=== PATIENT | male | born 1965 ===

== ENCOUNTER 2024-06-09 10:20 | Day surgery (SDC) | payer BC ==
[2024-06-09] MEDS ORDERED: Sodium Chloride 0.9% 10 ML Syringe FLUSH PRN (10:30)
[2024-06-09] MEDS: Lactated Ringers 1,000 ML IV SCH (10:40)
[2024-06-09] MEDS ORDERED: Midazolam 1 MG/ML 2 ML SDV ONE (11:09)
[2024-06-09] MEDS ORDERED: Propofol 200 MG/20 ML SDV ONE (11:09)
== END 2024-06-09 13:20 | disposition home or self-care (01) ==
LOC: KA.SDS 10:20
PROVIDERS: ATTEND Family Medicine
DX: Z12.11 Encounter for screening for malignant neoplasm of colon (principal); K62.1 Rectal polyp; K64.8 Other hemorrhoids; L30.9 Dermatitis, unspecified; I10 Essential (primary) hypertension; F17.210 Nicotine dependence, cigarettes, uncomplicated; Z79.899 Other long term (current) drug therapy; Z80.0 Family history of malignant neoplasm of digestive organs
CPT/HCPCS: 00811; J2250; J2704; J3490; J7120